=== PATIENT | female | born 1985 | race Hispanic/Latino ===

== ENCOUNTER 2017-02-03 14:06 | Emergency (ER) | payer OTHER ==
[~2017-02-03] VITALS: Ht 154.9 cm; Wt 63.5 kg
--- NOTE | 2017-02-03 14:49 | ED CARDIAC/CP/PALPITATIONS ---
History of Present Illness General Chief Complaint: Chest Pain Stated Complaint: C/P Source: patient Exam Limitations: no limitations Vital Signs & Intake/Output Vital Signs & Intake/Output Vital Signs Date Time Temp Pulse Resp B/P Pulse O2 O2 Flow FiO2 Ox Delivery Rate 02/03 1802 98.4 91 112/68 100 02/03 1653 98.6 86 16 107/66 100 Room Air 02/03 1411 97.8 103 14 125/79 100 Room Air ED Intake and Output 02/04 0000 02/03 1200 Intake Total Output Total Balance Patient 140 lb Weight Allergies Coded Allergies: No Known Allergies (02/03/17) Reconcile Medications No Known Home Medications Triage Note: 31 Y/O FEMALE C/O UPPER CHEST PAIN SINCE THIS AM, RATES 5/10. TOOK IBUPROPHEN AROUND 0800 WITH NO RELIEF. STATES PAIN IS "ON AND OFF". DENIES OTHER COMPLAINTS. Triage Nurses Notes Reviewed? yes Onset: Abrupt Duration: day(s): (2) Timing: recent history Quality/Severity: sharp Location: parasternal : No Patient currently breastfeeds: No HPI: 31 year old female with sharp pinching chest pain along sternum and right shoulder x 2 days. Patient endorses dyspnea at baseline secondray to asthma but not associated with this pain. No palpiataitons, trauma or heavy lifting. Patient does work at daycare. Non smoker, no substance abuse. Intermittent cold symptoms and diarrhea. No prescription medications. She called her doctors office and they referred her to the ER. Past History Travel History Traveled to [place] past 21 day No Medical History Any Pertinent Medical History? none Neurological: NONE EENT: NONE Cardiovascular: NONE Respiratory: NONE Gastrointestinal: NONE Hepatic: NONE Renal: NONE Musculoskeletal: NONE Psychiatric: NONE Endocrine: NONE Blood Disorders: NONE Cancer(s): NONE FURNITURE DETAILER/Reproductive: NONE Surgical History Surgical History: non-contributory Psychosocial History Tobacco Use: Never used Family History Hx Contributory? No Review of Systems Review of Systems Constitutional: Denies: chills, malaise. EENTM: Reports: no symptoms. Respiratory: Reports: cough. Denies: short of breath, sputum production. Cardiovascular: Reports: chest pain. Denies: palpitations, peripheral edema, syncope. GI: Denies: abdominal pain, diarrhea, nausea, vomiting. Genitourinary: Denies: discharge, dysuria. Musculoskeletal: Reports: no symptoms. Skin: Reports: no symptoms. Neurological/Psychological: Reports: no symptoms. Hematologic/Endocrine: Denies: bruising, bleeding, polyuria, polydipsia. Immunologic/Allergic: Denies: splenectomy. All Other Systems: Reviewed and Negative Physical Exam Physical Exam General Appearance: well developed/nourished, alert, awake, anxious Head: atraumatic, normal appearance Eyes: Bilateral: normal appearance, PERRL, EOMI. Ears, Nose, Throat: normal pharynx, normal ENT inspection, hearing grossly normal Neck: normal inspection, supple, full range of motion Respiratory: normal breath sounds, chest non-tender, no respiratory distress Cardiovascular: regular rate/rhythm, tender to palpation mid sternum Peripheral Pulses: 2+ radial (R), 2+ radial (L) Gastrointestinal: normal bowel sounds, soft, non-tender Back: normal inspection, normal range of motion Extremities: normal inspection, normal capillary refill, normal range of motion, no edema Neurologic/Psych: no motor/sensory deficits, awake, alert, oriented x 3 Skin: intact, normal color, warm/dry Core Measures ACS in differential dx? No Severe Sepsis Present: No Septic Shock Present: No Progress Differential Diagnosis: musculoskeletal pain, myocarditis, pericarditis Plan of Care: Orders Procedure Date/time Status URINE 02/03 1529 Complete COMPREHENSIVE METABOLIC PANEL 02/03 1529 Complete CBC WITHOUT DIFFERENTIAL 02/03 1529 Complete EKG 02/03 1410 Active Laboratory Tests 02/03/17 1630: Urine Test NEGATIVE 02/03/17 1510: Anion Gap 10, Estimated GFR > 60, BUN/Creatinine Ratio 14.3, Glucose 77, Calcium 9.2, Total Bilirubin 0.5, AST 22, ALT 35, Alkaline Phosphatase 67, Total Protein 6.9, Albumin 4.0, Globulin 2.9, Albumin/Globulin Ratio 1.4, CBC w Diff NO MAN DIFF REQ, RBC 4.39, MCV 87.4, MCH 28.9, RDW 12.8, MPV 8.8, Gran % 72.7, Lymphocytes % 17.3 L, Monocytes % 8.9, Eosinophils % 0.6, Basophils % 0.5, Absolute Granulocytes 5.4, Absolute Lymphocytes 1.3, Absolute Monocytes 0.7 H, Absolute Eosinophils 0, Absolute Basophils 0, PUBS MCHC 33.0 Diagnostic Imaging: Viewed by Me: Radiology Read. Discussed w/RAD: Radiology Read. CXR Impression: PATIENT: LILLY WHITE PRESENT AGE: 31 PATIENT ACCOUNT NO: [id number] : 87 LOCATION: [facility] ORDERING PHYSICIAN: LEILANI QUIROZ MD SERVICE DATE: 02/03/17-0985 EXAM TYPE: RAD - XRY-CHEST XRAY, PA AND LATERAL EXAMINATION: XR CHEST CLINICAL INFORMATION: Chest pain. Shortness of breath with exertion. COMPARISON: No relevant prior imaging is available. TECHNIQUE: 2 views of the chest were obtained. FINDINGS: Lungs are clear and well expanded. There is no focal consolidative disease, pleural effusion, or pneumothorax. The cardiac silhouette and upper mediastinal contours are normal. No acute osseous finding. IMPRESSION: Normal chest radiograph. DICTATED BY: SHIRIN ROY MD DATE/TIME DICTATED:02/03/171722 H[employer]IST[employer] HE[employer] PRACTITIONER:GILBERT DATE/TIME TRANSCRIBED:02/03/171722 CONFIDENTIAL, DO NOT COPY WITHOUT APPROPRIATE AUTHORIZATION. <Electronically signed in Other Vendor System> SIGNED BY: SHIRIN ROY MD 02/03/171726 Initial ED EKG: NSR Departure Departure Time of Disposition: 1740 Disposition: HOME OR SELF CARE Condition: Stable Clinical Impression Primary Impression: Musculoskeletal chest pain Referrals: ROBER GAONA MD (PCP/Family) Additional Instructions: Take ibuprofen as needed for pain and follow up with your doctor in the office. Return to the ER for any changing or worsening symptoms. Departure Forms: Customer Survey General Discharge Information Prescriptions: Current Visit Scripts No Known Home Medications Critical Care Note Critical Care Note Critical Care Time: non-applicable ED Attending Observation Initial Observation Note: I have seen and personally examined LILLY WHITE on 02/04/17 at 0931. I agree with the current emergency department documentation. The disposition (admission or discharge) is uncertain at this time, she needs a period of observation for the following reason(s): The ED Nurse caring for this patient has been personally informed as to what the patient is being observed for.
[2017-02-03 15:45] LABS: ABSOLUTE BASOPHIL COUNT 0 /CUMM (0.0-0.2); ABSOLUTE EOSINOPHIL COUNT 0 /CUMM (0.0-0.7); ABSOLUTE GRANULOCYTE CT 5.4 /CUMM (1.4-6.5); ABSOLUTE LYMPH COUNT 1.3 /CUMM (1.2-3.4); ABSOLUTE MONOCYTE COUNT 0.7 /CUMM (0.10-0.60); BASOPHIL % 0.5 % (0.0-2.0); EOSINOPHIL % 0.6 % (0-5); GRANULOCYTE % 72.7 % (42.2-75.2); HEMATOCRIT 38.4 % (37-47); MEAN CORPUSCULAR HGB 28.9 PG (27.0-31.0); MEAN CORPUSCULAR VOLUME 87.4 FL (81.0-99.0); MEAN PLATELET VOLUME 8.8 FL (7.4-10.4); PLATELET COUNT 291 /CUMM (130-400); RBC DISTRIBUTION WIDTH 12.8 % (11.5-14.5); RED BLOOD CELL CT 4.39 /CUMM (4.20-5.40); WHITE BLOOD CELL COUNT 7.4 /CUMM (4.8-10.8)
--- NOTE | 2017-02-03 17:27 | RADIOLOGY REPORT ---
EXAMINATION: XR CHEST CLINICAL INFORMATION: Chest pain. Shortness of breath with exertion. COMPARISON: No relevant prior imaging is available. TECHNIQUE: 2 views of the chest were obtained. FINDINGS: Lungs are clear and well expanded. There is no focal consolidative disease, pleural effusion, or pneumothorax. The cardiac silhouette and upper mediastinal contours are normal. No acute osseous finding. IMPRESSION: Normal chest radiograph.
[2017-02-03 18:02] VITALS: BP 112/68
== END 2017-02-03 18:02 ==
LOC: ERH 14:06
PROVIDERS: Emergency Medicine
DX: R07.89 Other chest pain (principal)
CPT/HCPCS: 81025; 93005; 93010